=== PATIENT | male | born 1995 | race Caucasian/White ===

== ENCOUNTER 2020-09-29 19:28 | Emergency (ER) | payer OTHER, SELFPAY ==
--- OUTSIDE RECORDS SUMMARY | 2020-09-29 19:33 | XMS REPORT | Continuity of Care Document ---
:1995 Author Organization [facility] t Address [address] [place] [address] Care Team Providers Name Role Phone Lab, Fam Pob I Attending Clinician Unavailable 2, Lab Attending Clinician Unavailable Doctor Unassigned, Name Attending Clinician Unavailable Elia Washington MD Attending Clinician Problems This patient has no known problems. Allergies, Adverse Reactions, Alerts This patient has no known allergies or adverse reactions. Medications This patient has no known medications. Procedures This patient has no known procedures. Encounters Start End Encounter Admission Attending Care Care Encounter Source Date/Time Date/Time Type Type Clinicians Facility Department ID 2020-04-11 2020-04-11 Pot Feeder Lab, [facility] [id number] [id number] 18:51:44 19:06:44 Visit Fam Pob I Health [id number] [place] [id number] Professio [phone] [place]al [address] One 2019-07-21 2019-07-21 Pot Feeder 2, [facility] Lab [facility] [id number] 08:50:04 09:05:04 Visit [place] [id number] [place] [id number] Professio [phone] [facility] 353 Building 2019-07-21 2019-07-21 Orders Doctor CASTANEDA [id number] 00:00:00 00:00:00 Only Unassigned, [place] [id number] [place] [facility] [id number] [phone] [id number] 2019-07-20 2019-07-20 Telemedici BAILEY [place] [id number] 12:37:04 13:07:04 ne Visit Donald Anna [id number] Elia Ortiz [id number] Profess [phone] nal 044 Building Results This patient has no known results.
[2020-09-29] MEDS ORDERED: dexAMETHasone 10 MG/ML VIAL ONE (21:34)
[2020-09-29] MEDS ORDERED: ONDANSETRON 4 MG/2 ML VIAL ONE (21:35)
[2020-09-29] MEDS ORDERED: MEPERIDINE HCL 25 MG/ML SYR ONE (21:35)
--- NOTE | 2020-09-29 21:58 | EDPHYS ---
Physician Documentation [facility] Name: Emiliano Gan Age: 25 yrs Sex: Male : 1995 Arrival Date: 09/29/2020 Time: 19:31 Bed 18 Private MD: ED Physician Ronnie Lake HPI: 09/29 20:58 This 25 yrs old Male presents to ER via Unassigned with complaints of Back rn Pain, Back Spasms. 20:58 This 25 yrs old Male presents to ER via Unassigned with complaints of Back rn Pain, Back Spasms. 20:58 The patient presents with pain that is acute. The symptoms are located in the left rn subscapular area and left mid back. Onset: The symptoms/episode began/occurred yesterday. The pain does not radiate. Associated signs and symptoms: Pertinent negatives: abdominal pain, chest pain, constipation, dysuria, fever, hematuria, incontinence, nausea, numbness, tingling, urinary retention, vomiting, weakness. The problem was sustained cutting down branches with machete using left arm. Modifying factors: The patient symptoms are alleviated by remaining still, the patient symptoms are aggravated by any movement, movement. Severity of symptoms: At their worst the symptoms were moderate, in the emergency department the symptoms are unchanged. The patient has not experienced similar symptoms in the past. The patient has not recently seen a physician. Reports yesterday was cutting branches on a ladder, reaching overhead with machete, began with left mid and subscapular pain yesterday, now worse today and coming in waves, worse with movement and with massage, no chest or abd pain. No fever. Does not feel ill. No direct trauma. No spinal pain. No bowel or bladder problems.. Historical: - Allergies: 21:38 Advil; ak2 21:38 BC Powder; ak2 21:38 Ibuprofen; ak2 - Immunization history:: Adult Immunizations up to date. - Social history:: Smoking status: unknown. - Family history:: not pertinent. - Hospitalizations: : No recent hospitalization is reported. ROS: 20:58 Constitutional: Negative for fever, chills, and weight loss, Eyes: Negative for injury, rn pain, redness, and discharge, Neck: Negative for injury, pain, and swelling, Cardiovascular: Negative for chest pain, palpitations, and edema, Respiratory: Negative for shortness of breath, cough, wheezing, and pleuritic chest pain, Abdomen/GI: Negative for abdominal pain, nausea, vomiting, diarrhea, and constipation, Back: Negative for injury MS/Extremity: Negative for injury and deformity, Skin: Negative for injury, rash, and discoloration, Neuro: Negative for headache, weakness, numbness, tingling, and seizure. Exam: 20:58 Constitutional: This is a well developed, well nourished patient who is awake, alert, rn appears uncomfortable when trying to sit up or lay down. Head/Face: Normocephalic, atraumatic. Chest/axilla: Normal chest wall appearance and motion. Nontender with no deformity. Cardiovascular: Regular rate and rhythm. No pulse deficits. Respiratory: No increased work of breathing, no retractions or nasal flaring. Abdomen/GI: soft, non-tender, no masses Back: No spinal tenderness. No focal tenderness or swelling noted Skin: Warm, dry MS/ Extremity: Pulses equal, no cyanosis. Neurovascular intact. Full, normal range of motion. Equal circumference. Neuro: Awake and alert, GCS 15, oriented to person, place, time, and situation. Cranial nerves II-XII grossly intact. Motor strength 5/5 in all extremities. Sensory grossly intact. Cerebellar exam normal. Antalgic gait. Vital Signs: 21:37 BP 125 / 74; Pulse 72; Resp 20; Temp 98.6(O); Pulse Ox 100% on R/A; ak2 22:05 BP 114 / 70; Pulse 72; Resp 18; Pulse Ox 98% on R/A; ak2 MDM: 20:32 Patient medically screened. rn 20:58 Differential diagnosis: arthritis, Fatigue Joint Injury Ligament Injury Osteoarthritis rn sprain, muscle spasm, radiculopathy. 21:56 Data reviewed: vital signs, nurses notes, and as a result, I will discharge patient. rn Counseling: I had a detailed discussion with the patient and/or guardian regarding: the historical points, exam findings, and any diagnostic results supporting the discharge/admit diagnosis, the need for outpatient follow up, to return to the emergency department if symptoms worsen or persist or if there are any questions or concerns that arise at home. Response to treatment: the patient's symptoms have mildly improved after treatment, and as a result, I will discharge patient. Special discussion: I discussed with the patient/guardian in detail that at this point there is no indication for admission to the hospital. It is understood, however, that if the symptoms persist or worsen the patient needs to return immediately for re-evaluation. ED course: No indication for emergent imaging or admission, most likely muscle spasm/pain from cutting branches given same side affected, and lack of spinal cord findings. Will dc home with muscle relaxer and return precautions. . 09/29 20:53 Order name: IV Start rn Administered Medications: 21:23 CANCELLED (Patient Refused; states NSAID allergyy): Ketorolac 15 mg IVP once rn 21:27 Drug: Demerol (meperidine) 25 mg Route: IVP; Site: right antecubital; ak2 21:27 Drug: Decadron - Dexamethasone 10 mg Route: IVP; Site: right antecubital; ak2 21:27 Drug: Zofran (Ondansetron) 4 mg Route: IVP; Site: right antecubital; ak2 21:48 Drug: Flexeril (cyclobenzaprine) 10 mg Route: PO; ak2 Disposition Summary: 09/29/20 21:57 Discharge Ordered Location: Home rn Problem: new rn Symptoms: have improved rn Condition: Stable rn Diagnosis - Muscle spasm of back rn Followup: rn - With: Private Physician - When: As needed - Reason: Recheck today's complaints, Re-evaluation by your physician Discharge Instructions: - Discharge Summary Sheet rn - Muscle Cramps and Spasms rn - Back Injury Prevention, Fbll-hw-Lbms rn - Back Exercises rn Forms: - Medication Reconciliation Form rn - Thank You Letter rn - Antibiotic rn nicu - Prescription Opioid Use rn Prescriptions: - Cyclobenzaprine 10 mg Oral Tablet - take 1 tablet by ORAL route every 8 hours As needed; 15 tablet; Refills: 0, rn Product Selection Permitted - Medrol (Kevin) 4 mg Oral Tablets, Dose Pack - take 1 tablet by ORAL route as directed - follow package instructions; 1 rn packet; Refills: 0, Product Selection Permitted Signatures: Ronnie Lake MD MD rn [place], Anthony ak2 Corrections: (The following items were deleted from the chart) 21:23 20:53 Ketorolac 15 mg IVP once ordered. rn rn
--- NOTE | 2020-09-29 21:58 | ER ---
Nurse's Notes [facility] Name: Emiliano Gan Age: 25 yrs Sex: Male : 1995 Arrival Date: 09/29/2020 Time: 19:31 Bed 18 Private MD: Diagnosis: Muscle spasm of back Presentation: 09/29 21:37 Chief complaint: Patient states: back pain. Coronavirus screen: Client denies travel ak2 out of the [place] in the last 14 days. At this time, the client does not indicate any symptoms associated with coronavirus-19. Ebola Screen: Patient negative for fever greater than or equal to 101.5 degrees Fahrenheit, and additional compatible Ebola Virus Disease symptoms Patient denies exposure to infectious person. Patient denies travel to an Ebola-affected area in the 21 days before illness onset. No symptoms or risks identified at this time. Initial Sepsis Screen: Does the patient meet any 2 criteria? No. Patient's initial sepsis screen is negative. Initial Sepsis Screen: Does the patient have a suspected source of infection? No. Patient's initial sepsis screen is negative. Risk Assessment: Do you want to hurt yourself or someone else? Patient reports no desire to harm self or others. 21:37 Acuity: MADY 4 ak2 21:37 Method Of Arrival: Ambulatory ak2 21:39 Onset of symptoms was September 27, 2020. ak2 Triage Assessment: 21:38 General: Appears in no apparent distress. Behavior is calm, cooperative. ak2 Musculoskeletal: 21:39 Pain: Complains of pain in back. ak2 Historical: - Allergies: 21:38 Advil; ak2 21:38 BC Powder; ak2 21:38 Ibuprofen; ak2 - Immunization history:: Adult Immunizations up to date. - Social history:: Smoking status: unknown. - Family history:: not pertinent. - Hospitalizations: : No recent hospitalization is reported. Screenin:37 Abuse screen: Denies threats or abuse. Denies injuries from another. Nutritional ak2 screening: No deficits noted. Tuberculosis screening: No symptoms or risk factors identified. Fall Risk None identified. Vital Signs: 21:37 BP 125 / 74; Pulse 72; Resp 20; Temp 98.6(O); Pulse Ox 100% on R/A; ak2 22:05 BP 114 / 70; Pulse 72; Resp 18; Pulse Ox 98% on R/A; ak2 ED Course: 19:31 Patient arrived in ED. bp1 20:32 Ronnie Lake MD is Attending Physician. rn 20:54 Juan Tripathi is Primary Nurse. ak2 21:37 Patient has correct armband on for positive identification. ak2 21:37 No provider procedures requiring assistance completed. Inserted saline lock: 20 gauge ak2 in right antecubital area, using aseptic technique. 21:38 Triage completed. ak2 21:38 Patient placed in the treatment room. ak2 22:05 Patient did not have IV access during this emergency room visit. ak2 Administered Medications: 21:23 CANCELLED (Patient Refused; states NSAID allergyy): Ketorolac 15 mg IVP once rn 21:27 Drug: Demerol (meperidine) 25 mg Route: IVP; Site: right antecubital; ak2 21:27 Drug: Decadron - Dexamethasone 10 mg Route: IVP; Site: right antecubital; ak2 21:27 Drug: Zofran (Ondansetron) 4 mg Route: IVP; Site: right antecubital; ak2 21:48 Drug: Flexeril (cyclobenzaprine) 10 mg Route: PO; ak2 Outcome: 21:57 Discharge ordered by . rn 22:05 Discharged to home ambulatory. ak2 22:05 Condition: good 22:05 Discharge instructions given to patient. 22:06 Patient left the ED. ak2 Signatures: Ronnie Lake MD MD rn Ciarra Bolton bp1 Juan Tripathi ak2
[2020-09-29] MEDS ORDERED: CYCLOBENZAPRINE 10 MG TAB ONE (22:08)
[2020-09-29 22:40] VITALS: TEMP 98.6
[2020-09-29 22:41] VITALS: BP 114/70; O2SAT 98
== END 2020-09-29 22:06 | disposition home or self-care (01) ==
LOC: ER 19:28
DX: M62.830 Muscle spasm of back (principal); Z88.6 Allergy status to analgesic agent
CPT/HCPCS: 96374; 96375; 99283; J1100; J2175; J2405

== ENCOUNTER 2021-08-27 19:54 | Emergency (ER) | payer SELFPAY ==
--- OUTSIDE RECORDS SUMMARY | 2021-08-27 19:58 | XMS REPORT | Continuity of Care Document ---
:1995 Author Organization [facility] t Address [facility] [address] [place] [address] Care Team Providers Name Role Phone Lab, Fam Pob I Attending Clinician Unavailable Arianna NFL PLAYER Attending Clinician ARIANNA Attending Clinician Unavailable 2, Lab Attending Clinician Unavailable Elia Washington MD Attending Clinician ELIA WASHINGTON Attending Clinician Unavailable Doctor Unassigned, Name Attending Clinician Unavailable Payers Payer Name Policy Type Policy Number Effective Date Expiration Date S ource Problems This patient has no known problems. Allergies, Adverse Reactions, Alerts Allergy Allergy Status Severity Reaction(s) Onset Inactive Treating Comm ents Source Name Type Date Date Clinician Ibuprofe Propensi Active Rash 2019-0 Univer s n ty to 4-20 ity of adverse 00:00: [place] reaction Medical s Branch IBUPROFE DRUG Active Rash 2019-0 Univers N INGREDI 4-20 ity of 00:00: [address] Branch PENICILL Drug Active Unknown-Cmnt Un patricio INS Class 6-19 ity of 00:00: [address] Branch Social History Social Habit Start Date Stop Date Quantity Comments Source Exposure to Yes [facility] SARS-CoV-2 [facility] (event) Branch Sex Assigned At Universit y of [facility] Tobacco use and 2019-07-20 2019-07-20 Never used Universit y of exposure 00:00:00 00:00:00 [facility] Alcohol intake 2019-07-20 2019-07-20 Current drinker Unive rsity of 00:00:00 00:00:00 of alcohol [facility] (finding) Branch Smoking Status Start Date Stop Date Source Never smoker [facility] Medications Ordered Filled Start Stop Current Ordering Indication Dosage Frequency Signature Comments Components Source Medication Medication Date Date Medication? Clinician (SIG) Name Name fexofenadin 2020- No 180mg Take 180 Univers e (NAVID) 4-20 04-20 mg by ity of 180 mg 20:49: 00:00 mouth [place] tablet 29 :00 daily. [facility] diphenhydrA 2020- No Take by U nivers MINE 4-20 04-20 mouth ity of (BENADRYL 20:49: 00:00 [place] 4 [place] ALLER[place] 26 :00 (four) Medical 12.5 mg/5 hours as Branch mL solution needed for Allergies. predniSONE 2020- No 1 PO BID x Univers (DELTASONE) 10-30 04-20 4 days ity o f 20 mg 00:00: 00:00 [place] tablet 00 :00 [facility] No known No Univers medications ity [facility] No known No Univers medications ity [facility] No known No [facility] Procedures Procedure Date / Time Performing Clinician Source Performed AGREEMENTS AUTHORIZATIONS 2019-07-21 05:01:00 Doctor Unassigned, [facility] AND IRREVOCABLE [place] [facility] ASSIGNMENTS (FORM 2001) Encounters Start End Encounter Admission Attending Care Care Encounter Source Date/Time Date/Time Type Type Clinicians Facility Department ID 2020-04-11 2020-04-11 Wardrobe Manager Lab, [facility] 1.2.840.114 [id number] 18:51:44 19:06:44 [facility] [id number] [place] [id number] Professio [phone] [place] [address] Office [address] One 2020-04-11 2020-04-11 Wardrobe Manager Lab, [facility] Pob I [facility] [id number]. [id number] Univers 18:51:44 19:06:44 Visit Maribel Cárdenasy [employer] [id number] ity [facility] [id number] [place] Professio [phone] [place] dical [address] Office Building One 2020-04-11 2020-04-11 Outpatient [facility] [id number] Univers 19:00:00 19:00:00 [id number] ity [facility] 2020-04-11 2020-04-11 [facility] [id number] Univers 19:00:00 19:00:[address] [facility] 2019-07-21 2019-07-21 Wardrobe Manager 2, Adc Lab [facility] 1.2.840.114 [id number] Univers 08:50:04 09:05:04 Visit John [place] 350.1.1 3.10 ity [facility] [id number] [place] Profess[place] [phone] La dical [address] 2019-07-21 2019-07-21 Wardrobe Manager 2, Adc Lab [facility] 1.2.840.114 [id number] 08:50:04 09:05:04 Visit [place] [id number] [place] [id number] Professio [phone] [address] 2019-07-21 2019-07-21 Outpatient R [facility] [id number] Univers 08:45:00 08:45:[id number] [facility] 2019-07-21 2019-07-21 [facility] [id number] Univers 08:45:00 08:45:[address] [facility] 2019-07-21 2019-07-21 Orders Doctor TONYA 1.2.840.114 [id number] Univers 00:00:00 00:00:00 Only Unassigned, [place] [id number] ity [facility] [id number] [place] as [phone] [address] 2019-07-21 2019-07-21 Orders Doctor TONYA [id number] 00:00:00 00:00:00 Only Unassigned, [place] [id number] [place] [facility] [id number] 2019-07-20 2019-07-20 Outpatient [facility] [id number] Univers 15:45:00 15:45:[address] [facility] 2019-07-20 2019-07-20 [facility]medici [facility] 1.2.840.114 [id number] [facility] 12:37:04 13:07:04 ne Visit John [place] [id number] ity of Elia Ortiz [id number] Marta bai Professio [phone] [facility] nal 0[address] [facility] 2019-07-20 2019-07-20 Telemedici Danial [facility] 1.2.840.114 [id number] 12:37:04 13:07:04 ne Visit John Anna [id number] Elia Ortiz [id number] Professio [phone] [address] Results This patient has no known results.
[2021-08-27] MEDS ORDERED: METHYLPREDNISOLONE 125 MG INJ ONE (20:21)
--- NOTE | 2021-08-27 20:55 | EDPHYS ---
Physician Documentation [facility] Name: Emiliano Gan Age: 26 yrs Sex: Male : 1995 Arrival Date: 08/27/2021 Time: 19:57 Bed 12 Private MD: ED Physician Ronnie Lake HPI: 08/27 20:49 This 26 yrs old Male presents to ER via Ambulatory with complaints of Hives, Eye rn Swelling, Drainage From Eye, Facial Swelling, Itching. 20:49 The patient is experiencing swelling under eyes. Onset: The symptoms/episode rn began/occurred yesterday. Duration: the symptoms are continuous. Aggravated by nothing. Alleviated by claritin. Associated signs and symptoms: Pertinent positives: rash, Pertinent negatives: chills, fever, headache. Severity of symptoms: At their worst the symptoms were moderate in the emergency department the symptoms have improved. The patient has not experienced similar symptoms in the past. Pt reports 2 days of watery eyes, swelling around eyes, rash under eyes and extremities. + itchy. Improves with claritin. Just cut his yard a few days ago, not sure if poison brenda. NO fever. Doesn't feel ill. Just got over diarrhea. . Historical: - Allergies: 20:01 Advil; iw 20:01 BC Powder; iw 20:01 Ibuprofen; iw - Home Meds: 20:01 None [Active]; iw - PMHx: 20:01 None; iw - PSHx: 20:01 None; iw - Immunization history:: Adult Immunizations up to date, Client reports having NOT received the Covid vaccine. - Social history:: Smoking status: Reported history of juuling and/or vaping. Patient/guardian denies using alcohol. - Family history:: not pertinent. - Hospitalizations: : No recent hospitalization is reported. ROS: 20:49 Constitutional: Negative for fever, chills, and weight loss, Eyes: + periorbital rn swelling and erythema ENT: Negative for injury, pain, and discharge, Neck: Negative for injury, pain, and swelling, Cardiovascular: Negative for chest pain, palpitations, and edema, Respiratory: Negative for shortness of breath, cough, wheezing, and pleuritic chest pain, Abdomen/GI: Negative for abdominal pain, nausea, vomiting, diarrhea, and constipation, Back: Negative for injury and pain, MS/Extremity: Negative for injury and deformity, Skin: + rash to extremities, and itchy Neuro: Negative for headache, weakness, numbness, tingling, and seizure. Exam: 20:49 Constitutional: This is a well developed, well nourished patient who is awake, alert, rn and in no acute distress. Head/Face: Normocephalic, atraumatic. Eyes: + mild periorbital swelling and erythema with maculopapular rash under eyes and cheeks. No hypopyon, + mild conjunctival injection Cardiovascular: Regular rate and rhythm. No pulse deficits. Respiratory: No increased work of breathing, no retractions or nasal flaring. Skin: Warm, dry, + papular rash to bilateral upper extremities, erythematous, no bullae, no skin sloughing. Vital Signs: 20:00 BP 127 / 81; Pulse 89; Resp 18; Temp 98.6(O); Pulse Ox 99% on R/A; Weight 104.33 kg; iw Height 5 ft. 9 in. (175.26 cm); Pain 0/10; 20:18 BP 124 / 80; Pulse 79; Resp 18; Pulse Ox 99% on R/A; Pain 0/10; ld1 20:00 Body Mass Index 33.96 (104.33 kg, 175.26 cm) iw MDM: 20:03 Patient medically screened. rn 20:49 Differential diagnosis: dermatitis, allergic reaction, poison brenda, environmental, viral rn syndrome. Data reviewed: vital signs, nurses notes, and as a result, I will discharge patient. Counseling: I had a detailed discussion with the patient and/or guardian regarding: the historical points, exam findings, and any diagnostic results supporting the discharge/admit diagnosis, the need for outpatient follow up, to return to the emergency department if symptoms worsen or persist or if there are any questions or concerns that arise at home. Special discussion: I discussed with the patient/guardian in detail that at this point there is no indication for admission to the hospital. It is understood, however, that if the symptoms persist or worsen the patient needs to return immediately for re-evaluation. Based on the history and exam findings, there is no indication for further emergent testing or inpatient evaluation. I discussed with the patient/guardian the need to see the primary care provider for further evaluation of the symptoms. ED course: Will put on steroids for possible contact dermatitis or allergic reaction, afebrile, nontoxic. Return precautions given and understood.. Administered Medications: 20:18 Drug: SOLU-Medrol (methylPREDNISolone sodium succinate) 125 mg Route: IM; Site: left ld1 deltoid; Disposition Summary: 08/27/21 20:55 Discharge Ordered Location: Home rn Problem: new rn Symptoms: have improved rn Condition: Stable rn Diagnosis - Rash and other nonspecific skin eruption rn Followup: rn - With: Private Physician - When: As needed - Reason: Recheck today's complaints, Re-evaluation by your physician Discharge Instructions: - Discharge Summary Sheet rn - Rash, Adult rn Forms: - Medication Reconciliation Form rn - Thank You Letter rn - Antibiotic journeyman wireman - Prescription Opioid Use rn Prescriptions: - Hydroxyzine HCl 50 mg Oral Tablet - take 1 tablet by ORAL route every 8 hours As needed; 20 tablet; Refills: 0, rn Product Selection Permitted - Prednisone 20 mg Oral Tablet - take 1 tablet by ORAL route as directed for 10 days Take 3 tablets by mouth rn once daily for 5 days, followed by 2 tablets by mouth once daily for 3 days, followed by 1 tablet by mouth once daily for 2 days, total of 10 days.; 23 tablet; Refills: 0, Product Selection Permitted Signatures: Henny Clifton RN RN Ronnie Vigil MD MD rn Dibbern, Lauren, RN RN ld1
--- NOTE | 2021-08-27 20:55 | ER ---
Nurse's Notes [facility] Name: Emiliano Gan Age: 26 yrs Sex: Male : 1995 Arrival Date: 08/27/2021 Time: 19:57 Bed 12 Private MD: Diagnosis: Rash and other nonspecific skin eruption Presentation: 08/27 20:00 Chief complaint: Patient states: Swelling around eyes, rash on FAY arms. Coronavirus iw screen: At this time, the client does not indicate any symptoms associated with coronavirus-19. Ebola Screen: No symptoms or risks identified at this time. Onset: The symptoms/episode began/occurred acutely. Anaphylaxis evaluation, no signs or symptoms of anaphylaxis were noted. Initial Sepsis Screen: Does the patient meet any 2 criteria? No. Patient's initial sepsis screen is negative. Does the patient have a suspected source of infection? No. Patient's initial sepsis screen is negative. Risk Assessment: Do you want to hurt yourself or someone else? Patient reports no desire to harm self or others. Onset of symptoms was August 27, 2021. 20:00 Method Of Arrival: Ambulatory iw 20:00 Acuity: MADY 4 iw Triage Assessment: 20:01 General: Appears in no apparent distress. comfortable, Behavior is calm, cooperative, iw appropriate for age. Pain: Denies pain. EENT: Reports swelling around eyes. Neuro: Level of Consciousness is awake, alert, obeys commands, Oriented to person, place, time, situation. Cardiovascular: Capillary refill < 3 seconds Patient's skin is warm and dry. Respiratory: Airway is patent Respiratory effort is even, unlabored. GI: Abdomen is flat, non-distended. Derm: Rash noted that is on right arm, left arm and neck. Historical: - Allergies: 20:01 Advil; iw 20:01 BC Powder; iw 20:01 Ibuprofen; iw - Home Meds: 20:01 None [Active]; iw - PMHx: 20:01 None; iw - PSHx: 20:01 None; iw - Immunization history:: Adult Immunizations up to date, Client reports having NOT received the Covid vaccine. - Social history:: Smoking status: Reported history of juuling and/or vaping. Patient/guardian denies using alcohol. - Family history:: not pertinent. - Hospitalizations: : No recent hospitalization is reported. Screenin:18 Abuse screen: Denies threats or abuse. Denies injuries from another. Nutritional ld1 screening: No deficits noted. Tuberculosis screening: No symptoms or risk factors identified. Fall Risk None identified. Assessment: 20:18 Reassessment: Patient appears in no apparent distress at this time. Patient is ld1 alert/active/playful, equal unlabored respirations, skin warm/dry/pink. See triage assessment. Respiratory: Airway is patent Respiratory effort is even, unlabored, Breath sounds are clear bilaterally. Vital Signs: 20:00 BP 127 / 81; Pulse 89; Resp 18; Temp 98.6(O); Pulse Ox 99% on R/A; Weight 104.33 kg; iw Height 5 ft. 9 in. (175.26 cm); Pain 0/10; 20:18 BP 124 / 80; Pulse 79; Resp 18; Pulse Ox 99% on R/A; Pain 0/10; ld1 20:00 Body Mass Index 33.96 (104.33 kg, 175.26 cm) iw ED Course: 19:57 Patient arrived in ED. jj6 20:01 Eyad Kuo, LEXX is PHCP. pm1 20:01 Ronnie Lake MD is Attending Physician. pm1 20:01 Triage completed. iw 20:01 Arm band placed on right wrist. iw 20:14 Tequila Hammer, RN is Primary Nurse. ld1 20:18 Patient has correct armband on for positive identification. Bed in low position. Call ld1 light in reach. Side rails up X2. manager monitoring on. Pulse ox on. NIBP on. Door closed. Noise minimized. Warm blanket given. 20:18 No provider procedures requiring assistance completed. Patient did not have IV access ld1 during this emergency room visit. Administered Medications: 20:18 Drug: SOLU-Medrol (methylPREDNISolone sodium succinate) 125 mg Route: IM; Site: left ld1 deltoid; Medication: 20:18 VIS not applicable for this client. ld1 Outcome: 20:55 Discharge ordered by . rn 21:06 Discharged to home ambulatory. ld1 21:06 Condition: stable 21:06 Discharge instructions given to patient, Instructed on discharge instructions, follow up and referral plans. medication usage, Demonstrated understanding of instructions, follow-up care, medications, Prescriptions given X 2. 21:07 Patient left the ED. ld1 Signatures: Henny Clifotn RN RN Ronnie Vigil MD MD rn Marinas, Patrick, OCEAN CLAM BOAT CAPTAIN OCEAN CLAM BOAT CAPTAIN pm1 Tequila Hammer RN RN ld1 Radha Amato jj6
[2021-08-27 21:11] VITALS: TEMP 98.6; O2SAT 99
[2021-08-27 21:13] VITALS: BP 124/80
== END 2021-08-27 21:07 | disposition home or self-care (01) ==
LOC: ER 19:54
DX: R21 Rash and other nonspecific skin eruption (principal); Z88.6 Allergy status to analgesic agent; F17.290 Nicotine dependence, other tobacco product, uncomplicated
CPT/HCPCS: 96372; 99284; J2930

== ENCOUNTER 2022-08-19 11:19 | Emergency (ER) | payer SELFPAY ==
--- OUTSIDE RECORDS SUMMARY | 2022-08-19 11:22 | XMS REPORT | Continuity of Care Document ---
:1995 Author Organization [facility] t Address [address] [facility] [address] [place] [id number] Care Team Providers Name Role Phone JOHN WASHINGTON Primary Care Physician Unavailable Lab, Adc Fam Pob I Attending Clinician Unavailable Abbi Caban Attending Clinician ABBI KELLER Attending Clinician Unavailable 2, Adc Lab Attending Clinician Unavailable John Washington MD Attending Clinician JOHN WASHINGTON Attending Clinician Unavailable Doctor Unassigned, [place] Attending Clinician Unavailable Payers Payer Name Policy Type Policy Number Effective Date Expiration Date S ource Problems This patient has no known problems. Allergies, Adverse Reactions, Alerts Allergy Allergy Status Severity Reaction(s) Onset Inactive Treating Comm ents Source Name Type Date Date Clinician Ibuprofe Propensi Active Rash Univer s n ty to 4-20 ity of adverse 00:00: [place] reaction [address] [place] [address] s Branch IBUPROFE DRUG Active Rash Univers N INGREDI 4-20 ity of 00:00: [address] Branch [place] Drug Active Unknown-Cmnt Un patricio INS Class 6-19 ity of 00:00: [place] [address] Medical Branch Social History Social Habit Start Date Stop Date Quantity Comments Source Exposure to Yes University of SARS-CoV-2 [facility] (event) Branch Sex Assigned At Universit y of [facility] Tobacco use and 2019-07-20 2019-07-20 Never used Universit y of exposure 00:00:00 00:00:00 [facility] Alcohol intake 2019-07-20 2019-07-20 Current drinker Unive rsity of 00:00:00 00:00:00 of alcohol [place] [facility] (finding) Branch Smoking Status Start Date Stop Date Source Never smoker [facility] Branch Medications Ordered Filled Start Stop Current Ordering Indication Dosage Frequency Signature Comments Components Source Medication Medication Date Date Medication? Clinician (SIG) Name Name fexofenadin 2019- No 180mg Take 180 Univers e (NAVID) 4-20 04-20 mg by ity of 180 mg 20:49: 00:00 mouth [place] tablet 29 :00 daily. Medical Branch diphenhydrA 2019- No Take by Un patricio MINE 4-20 04-20 mouth ity of (BENADRYL 20:49: 00:00 [place] 4 [place] ALLERGY) 26 :00 (four) Medical 12.5 mg/5 hours as Branch mL solution needed for Allergies. predniSONE 2019- No 1 PO BID x Univers (DELTASONE) 10-30 04-20 4 days ity o f 20 mg 00:00: 00:00 [place] tablet 00 :00 [facility] No known No Univers medications ity [facility] No known No Univers medications ity [facility] No known No Univers medications ity [facility] Procedures Procedure Date / Time Performing Clinician Source Performed AGREEMENTS AUTHORIZATIONS 2019-07-21 05:01:00 Doctor Unassigned, [facility] AND IRREVOCABLE [place] [facility] ASSIGNMENTS (FORM 2000) Encounters Start End Encounter Admission Attending Care Care Encounter Source Date/Time Date/Time Type Type Clinicians Facility Department ID 2020-04-11 2020-04-11 [facility], [facility] [id number] 18:51:44 19:06:44 [facility] [id number] [place] [id number] Professio [phone] nal [facility] Office Building One 2020-04-11 2020-04-11 [facility], [facility] Pob I [facility] [id number] Univers 18:51:44 19:06:44 Visit [facility] [id number] ity [facility] [id number] [place] Professio [phone] [place] [address] Branch Office Building One 2020-04-11 2020-04-11 Outpatient R [facility] [id number] Univers 19:00:00 19:00:00 ABBI viktoria [facility] 2019-07-21 2019-07-21 [employer] 2, Adc Lab [facility] [id number] Univers 08:50:04 09:05:04 Visit John Washington [place] 350.1.1 3.10 ity of [place] [id number] Profess[place] [phone] Wi dical nal [address] [facility] 2019-07-21 2019-07-21 [employer] 2, Adc Lab [facility] [id number] 08:50:04 09:05:04 Visit [place] [id number] [place] [id number] Professio [phone] nal [address] [place] [address] 2019-07-21 2019-07-21 Outpatient R DANIAL [facility] [id number] Univers 08:45:00 08:45:00 JOHN blum [facility] 2019-07-21 2019-07-21 Orders Doctor CASTANEDA [id number] Univers 00:00:00 00:00:00 Only Unassigned, [place] [id number] ity of [place] [facility] [id number] [place] [phone] [address] 2019-07-21 2019-07-21 Orders Doctor TONYA [id number] 00:00:00 00:00:00 Only Unassigned, [place] [id number] [place] [facility] [id number] [phone] [facility] 2019-07-20 2019-07-20 Outpatient R DANIAL [facility] [id number] Univers 15:45:00 15:45:00 JOHN [facility] 2019-07-20 2019-07-20 [facility] [id number] Univers 12:37:04 13:07:04 ne Visit John [place] [id number] ity of [id number] Profess[place] [phone] Me dical nal 044 [facility] 2019-07-20 2019-07-20 [facility] [id number] 12:37:04 13:07:04 ne Visit John [place] [id number] Elia Ortiz [id number] [place] [phone] [address] Results This patient has no known results.
--- NOTE | 2022-08-19 11:34 | EDPHYS ---
Physician Documentation [facility] Name: Emiliano Gan Age: 27 yrs Sex: Male : 1995 Arrival Date: 08/19/2022 Time: 11:19 Bed IW1 Private MD: ED Physician Abraham Mccarthy HPI: 08/19 11:30 This 27 yrs old Male presents to ER via Ambulatory with complaints of POISON MAXX. jmm 11:30 The patient's rash thought to be caused by Dermatitis Contact allergy. The rash is jmm located on the face and left arm. Onset: The symptoms/episode began/occurred gradually, 1 day(s) ago. Associated signs and symptoms: Pertinent positives: burning sensation, itching, Pertinent negatives: swelling of lips, swelling of throat, swelling of tongue, vomiting, wheezing. The patient has not experienced similar symptoms in the past. Historical: - Allergies: 11:29 BC Powder; hb 11:29 Ibuprofen; hb - Home Meds: 11:29 None [Active]; hb - PMHx: 11:29 None; hb - PSHx: 11:29 None; hb - Immunization history:: Adult Immunizations up to date. - Social history:: Smoking status: Patient denies any tobacco usage or history of. ROS: 11:30 Constitutional: Negative for fever, chills, and weight loss, Cardiovascular: Negative jmm for chest pain, palpitations, and edema, Respiratory: Negative for shortness of breath, cough, wheezing, and pleuritic chest pain. 11:30 Skin: Positive for rash. 11:30 All other systems are negative. Exam: 11:30 Constitutional: This is a well developed, well nourished patient who is awake, alert, jmm and in no acute distress. 11:30 ENT: Moist Mucus Membranes Neck: Trachea midline, Supple Chest/axilla: Normal chest wall appearance and motion. Cardiovascular: Regular rate and rhythm. No edema appreciated Respiratory: Normal respirations, no respiratory distress appreciated Abdomen/GI: Non distended Back: Normal ROM 11:30 Head/face: Rash noted to the left side of the face. 11:30 Skin: Erythema noted to the left forearm. 11:30 Neuro: Orientation: is normal, Mentation: is normal, Memory: is normal. 11:30 Psych: Behavior/mood is pleasant, cooperative. Vital Signs: 11:28 BP 139 / 87; Pulse 74; Resp 16; Temp 97.4; Pulse Ox 98% on R/A; Weight 104.33 kg; hb Height 6 ft. 0 in. ; Pain 0/10; 11:28 Body Mass Index 31.19 (104.33 kg, 182.88 cm) hb 11:28 Pain Scale: Adult hb MDM: 11:26 Patient medically screened. [facility] 11:30 Differential diagnosis: Dermatitis. Data reviewed: vital signs, nurses notes. I lee considered the following discharge prescriptions or medication management in the emergency department Medications were administered in the Emergency Department. See MAR. Counseling: I had a detailed discussion with the patient and/or guardian regarding: the historical points, exam findings, and any diagnostic results supporting the discharge/admit diagnosis, the need for outpatient follow up, to return to the emergency department if symptoms worsen or persist or if there are any questions or concerns that arise at home. ED course: Fixed cervical exam findings consistent with contact dermatitis. Patient advised follow-up PCP and otherwise given strict return precautions. Patient understood and agrees plan of care.. Administered Medications: 11:36 Drug: Dexamethasone IM 10 mg Route: IM; Site: right deltoid; 3 11:39 Follow up: Response: No adverse reaction eh3 Disposition Summary: 08/19/22 11:34 Discharge Ordered Location: Home [facility] Condition: Stable [facility] Diagnosis - Rash and other nonspecific skin eruption [facility] Followup: [facility] - With: Private Physician - When: 2 - 3 days - Reason: Recheck today's complaints, Continuance of care, Re-evaluation by your physician Discharge Instructions: - Discharge Summary Sheet [facility] - Poison Maxx Dermatitis [facility] Forms: - Work release form [facility] - Medication Reconciliation Form [facility] - Thank You Letter [facility] - Antibiotic Education [facility] - Prescription Opioid Use [facility] Prescriptions: - Hydroxyzine HCl 25 mg Oral Tablet - take 1 tablet by ORAL route every 6 hours As needed; 30 tablet; Refills: 0, [facility] Product Selection Permitted - Prednisone 20 mg Oral Tablet - take 3 tablets by ORAL route once daily for 5 days Please take 3 tabs by mouth jm daily for 3 days, then take 2 tabs by mouth daily for 3 days, then take 1 tab by mouth daily for 3 days, then take one half tab by mouth daily for 3 days; 20 tablet; Refills: 0, Product Selection Permitted Signatures: Kenji Goldstein PA PA jmm Baxter, Heather, RN RN Yamileth Hare RN RN eh3
--- NOTE | 2022-08-19 11:34 | ER ---
Nurse's Notes [facility] Name: Emiliano Gan Age: 27 yrs Sex: Male : 1995 Arrival Date: 08/19/2022 Time: 11:19 Bed IW1 Private MD: Diagnosis: Rash and other nonspecific skin eruption Presentation: 08/19 11:28 Chief complaint: Rash on face and arms, facial swelling, exposed to poison brenda 2 days hb ago. Coronavirus screen: At this time, the client does not indicate any symptoms associated with coronavirus-19. Ebola Screen: No symptoms or risks identified at this time. Initial Sepsis Screen: Does the patient meet any 2 criteria? No. Patient's initial sepsis screen is negative. Does the patient have a suspected source of infection? No. Patient's initial sepsis screen is negative. Risk Assessment: Do you want to hurt yourself or someone else? Patient reports no desire to harm self or others. Onset of symptoms was August 19, 2022. 11:28 Method Of Arrival: Ambulatory hb 11:28 Acuity: MADY 4 hb Triage Assessment: 11:29 General: Appears in no apparent distress. Behavior is calm, cooperative. Pain: Denies hb pain. Neuro: Level of Consciousness is awake, alert, obeys commands, Oriented to person, place, time, situation. Cardiovascular: Patient's skin is warm and dry. Respiratory: Respiratory effort is even, unlabored, Respiratory pattern is regular, symmetrical. Historical: - Allergies: 11: BC Powder; hb 11:29 Ibuprofen; hb - Home Meds: 11:29 None [Active]; hb - PMHx: 11:29 None; hb - PSHx: 11:29 None; hb - Immunization history:: Adult Immunizations up to date. - Social history:: Smoking status: Patient denies any tobacco usage or history of. Screenin:31 [facility] ED Fall Risk Assessment (Adult) Score/Fall Risk Level 0 - 2 = Low Risk. Abuse eh3 screen: Denies threats or abuse. Denies injuries from another. Nutritional screening: No deficits noted. Tuberculosis screening: No symptoms or risk factors identified. Vital Signs: 11: BP 139 / 87; Pulse 74; Resp 16; Temp 97.4; Pulse Ox 98% on R/A; Weight 104.33 kg; hb Height 6 ft. 0 in. ; Pain 0/10; 11:28 Body Mass Index 31.19 (104.33 kg, 182.88 cm) hb 11:28 Pain Scale: Adult hb ED Course: 11:21 Patient arrived in ED. ts1 11:22 Kenji Goldstein PA is PHCP. lee 11:22 Abraham cMcarthy MD is Attending Physician. jmm 11:29 Triage completed. hb 11:29 Arm band placed on. hb 11:31 Patient has correct armband on for positive identification. eh3 11:31 No provider procedures requiring assistance completed. Patient did not have IV access eh3 during this emergency room visit. Administered Medications: 11:36 Drug: Dexamethasone IM 10 mg Route: IM; Site: right deltoid; 3 11:39 Follow up: Response: No adverse reaction eh3 Medication: 11:32 VIS not applicable for this client. eh3 Outcome: 11:34 Discharge ordered by . [facility] 11:39 Discharged to home ambulatory. eh3 11:39 Condition: stable 11:39 Discharge instructions given to patient, Instructed on discharge instructions, follow up and referral plans. medication usage, Demonstrated understanding of instructions, follow-up care, medications, Prescriptions given X 2. 11:39 Patient left the ED. eh3 Signatures: Kenji Goldstein PA PA jm Sabine Kaur, VIRA CONSTANTINO Yamileth Hare RN RN 3 Mary Singletary PAS [facility] ts1
[2022-08-19] MEDS ORDERED: dexAMETHasone 10 MG/ML VIAL ONE (11:38)
[2022-08-19 11:45] VITALS: BP 139/87; TEMP 97.4; O2SAT 98
== END 2022-08-19 11:39 | disposition home or self-care (01) ==
LOC: ER 11:19
DX: R21 Rash and other nonspecific skin eruption (principal); Z88.6 Allergy status to analgesic agent
CPT/HCPCS: J1100